=== PATIENT | male | born 1995 | race African-American/Black ===

== ENCOUNTER 2017-05-06 20:17 | Emergency (ER) | payer OTHER ==
--- NOTE | 2017-05-06 20:56 | RADIOLOGY REPORT (SQ) ---
EXAM DESCRIPTION: WRIST LEFT 3 VIEWS COMPLETED DATE/TIME: 05/06/2017 8:48 pm REASON FOR STUDY: pain, fall COMPARISON: None. NUMBER OF VIEWS: Three views. TECHNIQUE: AP, lateral, and oblique radiographic images acquired of the left wrist. LIMITATIONS: None. FINDINGS: MINERALIZATION: Normal. BONES: No acute fracture or dislocation. No worrisome bone lesions. Normal alignment. SOFT TISSUES: No soft tissue swelling. No foreign body. OTHER: No other significant finding. IMPRESSION: NEGATIVE STUDY OF THE LEFT WRIST. NO RADIOGRAPHIC EVIDENCE OF ACUTE INJURY. TECHNICAL DOCUMENTATION: JOB ID: [id number] [employer]- All Rights Reserved
--- NOTE | 2017-05-06 21:00 | RADIOLOGY REPORT (SQ) ---
EXAM DESCRIPTION: ELBOW LEFT OVER 2 VIEWS COMPLETED DATE/TIME: 05/06/2017 8:48 pm REASON FOR STUDY: pain, fall COMPARISON: None. NUMBER OF VIEWS: Four views. TECHNIQUE: AP, lateral, and both oblique radiographic images acquired of the left elbow. LIMITATIONS: None. FINDINGS: MINERALIZATION: Normal. BONES: Faint linear radiolucency at the neck of the radius on one image only. JOINT: Displaced fat pads secondary to joint effusion. SOFT TISSUES: No soft tissue swelling. No foreign body. OTHER: No other significant finding. IMPRESSION: ELBOW JOINT EFFUSION. FAINT LINEAR RADIOLUCENCY AT THE NECK OF THE RADIUS SEEN ON ONE I MAGE ONLY. THIS COULD BE ARTIFACT. HOWEVER, GIVEN THE PRESENCE OF A JOINT EFFUSION, NONDISPLACED OC CULT FRACTURE COULD BE PRESENT. TECHNICAL DOCUMENTATION: JOB ID: [id number] [employer]- All Rights Reserved
[2017-05-06] MEDS ORDERED: HYDROCODONE/ACETAMINOPHEN 5-325 MG (6 TAB/ER DISP) PO PRN (22:20)
--- NOTE | 2017-05-06 22:23 | ER Document Report ---
HPI - HPI Patient complains to provider of: left arm injury Pain Level: 5 Context: Patient is a 21 year old male that comes to the ED for left arm and elbow injury. Patient states he slipped on wet leaves and landed on asphalt on his elbow. He reports swelling and pain, states he cannot straighten his elbow. He denies back injury, head injury, or any other locations of pain except for his left wrist. Past Medical History - General Information source: Patient - Social History Smoking Status: Never Smoker Frequency of alcohol use: None Drug Abuse: None Lives with: Family Family History: Reviewed & Not Pertinent - Immunizations Immunizations up to date: Yes Hx Diphtheria, Pertussis, Tetanus Vaccination: Yes Vertical Provider Document - CONSTITUTIONAL General Appearance: WD/WN, No Apparent Distress - INFECTION CONTROL TRAVEL OUTSIDE OF THE [place] IN LAST 30 DAYS: No - HEENT HEENT: Atraumatic, Normocephalic - NECK Neck: Normal Inspection - RESPIRATORY Respiratory: Breath Sounds Normal, No Respiratory Distress O2 Sat by Pulse Oximetry: 98 - CARDIOVASCULAR Cardiovascular: Regular Rate, Regular Rhythm - GI/ABDOMEN Gastrointestinal: Abdomen Soft, Abdomen Non-Tender - BACK Back: Normal Inspection - MUSCULOSKELETAL/EXTREMETIES Musculoskeletal/Extremeties: Tender - Patient is very tender directly over the left elbow, there is soft tissue swelling in the area, there is general tenderness at the wrist but no snuffbox tenderness. Too painful to straighten the elbow. Normal range of motion of the wrist, normal capillary refill and sensation. Normal shoulder exam. Normal upper extremity exam otherwise. - DERM Integumentary: Dry, No Rash Course - Re-evaluation Re-evalutation: Based on patient's clinical examination and his x-ray I believe he has a small nondisplaced fracture at the base of the left elbow. Discussed this with patient. Splint was applied, provided with pain medication, orthopedic follow- up, wrist examination is unremarkable, x-ray is also unremarkable and review. Discussed return precautions. Patient states understanding and agreement. - Vital Signs Vital signs: Temp Pulse Resp BP Pulse Ox 98.4 F 64 L 14 L 128/68 98 05/06/17 20:32 05/06/17 20:32 05/06/17 20:32 05/06/17 20:32 05/06/17 20:32 Procedures - Immobilization Left elbow Pre-Proc Neuro Vasc Exam: Normal Immobilizer type: Long arm posterior Performed by: Provider assisted, RN Post-Proc Neuro Vasc Exam: Normal Alignment checked and good: Yes Discharge - Discharge Clinical Impression: Injury of left elbow Qualifiers: Encounter type: initial encounter Qualified Code(s): S59.902A - Unspecified injury of left elbow, initial encounter Left wrist injury Qualifiers: Encounter type: initial encounter Qualified Code(s): S69.92XA - Unspecified injury of left wrist, hand and finger(s), initial encounter Condition: Stable Disposition: HOME, SELF-CARE Additional Instructions: The x-ray of the elbow is concerning for a small nondisplaced fracture. Wear the splint, take Tylenol for pain, take the provided pain medication if needed instead. The x-ray of the wrist is normal, the examination suggests soft tissue swelling only. Please follow-up closely with orthopedics referral for additional evaluation and management. Call the referral number tomorrow to set this up. Return for any concerning symptoms including severe swelling or pain. Prescriptions: Hydrocodone/Acetaminophen [[place] 5-325 mg Tablet] 1 - 2 tab PO ASDIR #12 tablet Forms: Return to Work Referrals: DELMA STRONG MD [ACTIVE STAFF] - Follow up tomorrow
[2017-05-06 22:24] VITALS: BP 121/72
== END 2017-05-06 23:05 | disposition home or self-care (01) ==
LOC: EDBD → ER 20:17
PROC: 2W39X1Z Immobilization of Left Upper Extremity using Splint (ICD-10-PCS; principal; 2017-05-06)
DX: S59.902A Unspecified injury of left elbow, initial encounter (principal); S69.92XA Unspecified injury of left wrist, hand and finger(s), initial encounter; W01.0XXA Fall on same level from slipping, tripping and stumbling without subsequent striking against object, initial encounter
CPT/HCPCS: 99283

== ENCOUNTER 2017-05-26 11:01 | Emergency (ER) | payer OTHER ==
[2017-05-26 11:09] VITALS: BP 135/71
--- NOTE | 2017-05-26 12:29 | ER Document Report ---
HPI - HPI Patient complains to provider of: fell and twisted left foot and back Onset: Yesterday - pm Pain Level: 4 Context: 22 yo male fell on stairs lst night twisting right thoracic back and left foot. 1- dx fx left elbow, took splint off after 2 weeks, no ortho f/u, still does not have full extension but it is doing better. Associated Symptoms: None Exacerbated by: Movement, Walking Relieved by: Denies Similar symptoms previously: Yes Recently seen / treated by doctor: Yes - ROS ROS below otherwise negative: Yes Systems Reviewed and Negative: Yes All other systems reviewed and negative - CONSTITUTIONAL Constitutional: DENIES: Fever, Chills - MUSCULOSKELETAL Musculoskeletal: REPORTS: Extremity pain Past Medical History - General Information source: Patient - Social History Smoking Status: Current Every Day Smoker Chew tobacco use (# tins/day): No Frequency of alcohol use: None Drug Abuse: None Lives with: Spouse/Significant other Family History: Reviewed & Not Pertinent Patient has suicidal ideation: No Patient has homicidal ideation: No Renal/ Medical History: Denies: Hx Peritoneal Dialysis Musculoskeltal Medical History: Reports Other - recent fx left elbow Surgical Hx: Negative - Immunizations Immunizations up to date: Yes Hx Diphtheria, Pertussis, Tetanus Vaccination: Yes Vertical Provider Document - CONSTITUTIONAL Agree With Documented VS: Yes Exam Limitations: No Limitations General Appearance: No Apparent Distress - INFECTION CONTROL TRAVEL OUTSIDE OF THE [place] IN LAST 30 DAYS: No - NECK Neck: Supple - RESPIRATORY O2 Sat by Pulse Oximetry: 97 - MUSCULOSKELETAL/EXTREMETIES Musculoskeletal/Extremeties: Tender - dorsal lateral left foot, Edema Notes: unable to fully extend left elbow. - NEURO Level of Consciousness: Awake, Alert, Appropriate Motor/Sensory: No Motor Deficit, No Sensory Deficit - DERM Integumentary: Warm, Dry Course - Vital Signs Vital signs: Temp Pulse Resp BP Pulse Ox 98.7 F 78 16 135/71 H 97 05/26/17 11:08 05/26/17 11:08 05/26/17 11:08 05/26/17 11:08 05/26/17 11:08 Discharge - Discharge Clinical Impression: thoracic back strain Left radial head fracture Qualifiers: Encounter type: subsequent encounter Fracture type: closed Fracture alignment: nondisplaced Fracture healing: with routine healing Qualified Code(s): S52.125D - Nondisplaced fracture of head of left radius, subsequent encounter for closed fracture with routine healing Sprain of left foot Qualifiers: Encounter type: initial encounter Qualified Code(s): S93.602A - Unspecified sprain of left foot, initial encounter Condition: Good Disposition: HOME, SELF-CARE Instructions: Noel Wrap ([facility]), Radial Head Fracture ([facility]), Sling as Treatment ( [facility]), Sprain ([facility]), Upper Back Strain ([facility]) Additional Instructions: sling left elbow since you do not want to wear the splint noel wrap for left foot see the orthopedic doctor for recheck on the elbow fracture Prescriptions: Ibuprofen [Motrin 800 mg Tablet] 800 mg PO Q8HP PRN #30 tablet PRN Reason: Referrals: DELMA STRONG MD [ACTIVE STAFF] - Follow up as needed
--- NOTE | 2017-05-26 13:37 | RADIOLOGY REPORT (SQ) ---
EXAM DESCRIPTION: ELBOW LEFT OVER 2 VIEWS COMPLETED DATE/TIME: 05/26/2017 1:25 pm REASON FOR STUDY: fall down stairs COMPARISON: 05/06/2017. NUMBER OF VIEWS: Four views. TECHNIQUE: AP, lateral, and both oblique radiographic images acquired of the left elbow. LIMITATIONS: None. FINDINGS: MINERALIZATION: Normal. BONES: Minimally displaced fracture of the radial head. Remainder the bony structures are intact. JOINT: Displaced fat pads secondary to joint effusion. SOFT TISSUES: No soft tissue swelling. No foreign body. OTHER: No other significant finding. IMPRESSION: MINIMALLY DISPLACED FRACTURE OF THE RADIAL HEAD. TECHNICAL DOCUMENTATION: JOB ID: [id number] [employer]- All Rights Reserved
--- NOTE | 2017-05-26 13:38 | RADIOLOGY REPORT (SQ) ---
EXAM DESCRIPTION: FOOT LEFT COMPLETE COMPLETED DATE/TIME: 05/26/2017 1:25 pm REASON FOR STUDY: fall down stairs COMPARISON: None. NUMBER OF VIEWS: Three views. TECHNIQUE: AP, lateral and oblique radiographic images acquired of the left foot. LIMITATIONS: None. FINDINGS: MINERALIZATION: Normal. BONES: No acute fracture or dislocation. No worrisome bone lesions. JOINTS: No effusions. SOFT TISSUES: No soft tissue swelling. No foreign body. OTHER: No other significant finding. IMPRESSION: NEGATIVE STUDY OF THE LEFT FOOT. NO RADIOGRAPHIC EVIDENCE OF ACUTE INJURY. TECHNICAL DOCUMENTATION: JOB ID: [id number] [employer]- All Rights Reserved
== END 2017-05-26 15:01 | disposition home or self-care (01) ==
LOC: ER 11:01
DX: S52.125D Nondisplaced fracture of head of left radius, subsequent encounter for closed fracture with routine healing (principal); S93.602D Unspecified sprain of left foot, subsequent encounter; S29.012D Strain of muscle and tendon of back wall of thorax, subsequent encounter; W10.9XXD Fall (on) (from) unspecified stairs and steps, subsequent encounter; F17.200 Nicotine dependence, unspecified, uncomplicated
CPT/HCPCS: 99283